=== PATIENT | female | born 1955 | race Caucasian/White ===

== ENCOUNTER 2021-06-14 05:35 | Day surgery (SDC) | payer MEDICARE, MEDICAID ==
[2021-06-13 11:42] VITALS: BMI 30.9
[2021-06-14] MEDS ORDERED: Lidocaine 1% MPF 2 ML VIAL ONE (06:13)
[2021-06-14] MEDS ORDERED: EPINEPHrine 1 MG/ML AMP ONE (07:01)
[2021-06-14] MEDS ORDERED: CEFAZOLIN 1 GM VIAL ONE ×2 (07:01)
[2021-06-14] MEDS ORDERED: Mupirocin 2% Ointment 22 GM Tube ONE (07:01)
[2021-06-14] MEDS ORDERED: Methylene Blue 50 MG/10 ML AMPUL ONE (07:01)
[2021-06-14] MEDS ORDERED: Scopolamine 1.5 mg/72 hour Patch ONE (08:20)
[2021-06-14] MEDS ORDERED: Lidocaine 4% PF 5 ML AMP ONE (08:38)
[2021-06-14] MEDS ORDERED: Fentanyl 100 MCG/2 ML VIAL ONE (08:38)
[2021-06-14] MEDS ORDERED: Succinylcholine 200 MG/10 ml SYRINGE FS ONE (08:38)
[2021-06-14] MEDS ORDERED: Glycopyrrolate 0.2 MG/ML 5 ML SYRINGE ONE (08:38)
[2021-06-14] MEDS ORDERED: PHENYLEPHRINE-NS 100 MCG/ML 10 ML SYRINGE ONE (08:38)
[2021-06-14] MEDS ORDERED: Ondansetron PF 4 MG/2 ML Vial ONE (08:38)
[2021-06-14] MEDS ORDERED: Dexamethasone 20 MG/5 ML VIAL ONE (08:38)
[2021-06-14] MEDS ORDERED: Rocuronium Bromide 10 MG/ML (10ML VIAL) ONE (08:38)
[2021-06-14] MEDS ORDERED: PROPOFOL 200 MG/20 ML VIAL ONE (08:38)
[2021-06-14] MEDS ORDERED: ePHEDrine Sulfate 50 MG/10 ML VIAL ONE (08:38)
[2021-06-14] MEDS ORDERED: Lidocaine 1% w/Epinephrine 1:100K 20 ML VIAL ONE (08:55)
== END 2021-06-14 11:35 | disposition home or self-care (01) ==
LOC: CSHSDC 05:35
PROVIDERS: ATTEND Otolaryngology Plastic Surgery within the Head & Neck
DX: H90.3 Sensorineural hearing loss, bilateral (principal); Z79.899 Other long term (current) drug therapy; I10 Essential (primary) hypertension
CPT/HCPCS: 69930; 70260; L8614 ×2; J0171; J0690; J1100; J2405; J2704; J3010; Q9968